=== PATIENT | female | born 1940 | race African-American/Black ===

== ENCOUNTER → 2016-10-18 | Outpatient (CLI) | payer OTHER, MEDICARE ==
[~2016-10-18] MED LIST: MOBIC15 MG PO; NORCO 5-325 TA1 EACH PO; PROCARDIA XL60 MG PO; SYNTHROID88 MCG PO; VALIUM5 MG PO
== END ==
LOC: RAD 11:10
DX: M47.812 Spondylosis without myelopathy or radiculopathy, cervical region (principal); M54.2 Cervicalgia; V49.88XA Car occupant (driver) (passenger) injured in other specified transport accidents, initial encounter; Y93.89 Activity, other specified; Y92.89 Other specified places as the place of occurrence of the external cause; Y99.8 Other external cause status

== ENCOUNTER → 2017-02-06 | Outpatient (CLI) | payer MEDICARE, OTHER | LOC: RAD 10:44 | DX: Z12.31 Encounter for screening mammogram for malignant neoplasm of breast (principal) ==

== ENCOUNTER → 2017-02-08 | Outpatient (CLI) | payer MEDICARE, OTHER | LOC: RAD 01:57 | DX: N63 Unspecified lump in breast (principal) ==

== ENCOUNTER → 2017-11-13 | Outpatient (CLI) | payer MEDICARE ==
[~2017-11-13] MED LIST changes: +ERYTHROMYCIN E3.5 G3 OPHTHALMIC; +NORVASC5 M1 PO
== END ==
LOC: RAD 09:22
DX: M50.322 Other cervical disc degeneration at C5-C6 level (principal)

== ENCOUNTER → 2018-02-12 | Outpatient (CLI) | payer MEDICARE, OTHER ==
[~2018-02-12] MED LIST changes: -ERYTHROMYCIN E3.5 G3 OPHTHALMIC; -NORVASC5 M1 PO
== END ==
LOC: RAD 00:30
DX: Z12.31 Encounter for screening mammogram for malignant neoplasm of breast (principal)

== ENCOUNTER 2018-08-03 15:48 | Emergency (ER) | payer MEDICARE, OTHER ==
[~2018-08-03] VITALS: Ht 160 cm; Wt 61.2 kg
[2018-08-03] MEDS ORDERED: NORVASC5 M1 PO (17:02)
[2018-08-03] MEDS ORDERED: ERYTHROMYCIN E3.5 G3 OPHTHALMIC (18:24)
[2018-08-03 18:40] VITALS: BP 121/78
== END 2018-08-03 18:40 | disposition home or self-care (01) ==
LOC: ER 15:48
DX: S05.02XA Injury of conjunctiva and corneal abrasion without foreign body, left eye, initial encounter (principal); I10 Essential (primary) hypertension; K21.9 Gastro-esophageal reflux disease without esophagitis; E03.9 Hypothyroidism, unspecified; X58.XXXA Exposure to other specified factors, initial encounter; Y93.89 Activity, other specified; Y92.89 Other specified places as the place of occurrence of the external cause; Y99.8 Other external cause status

== ENCOUNTER → 2019-03-26 | Outpatient (CLI) | payer MEDICARE ==
[~2019-03-26] MED LIST changes: +ERYTHROMYCIN E3.5 G3 OPHTHALMIC; +NORVASC5 M1 PO
== END ==
LOC: RAD 00:50
DX: Z12.31 Encounter for screening mammogram for malignant neoplasm of breast (principal)

== ENCOUNTER → 2020-06-09 | Outpatient (CLI) | payer MEDICARE | LOC: RAD 10:28 | PROVIDERS: ATTEND Obstetrics & Gynecology | DX: Z12.31 Encounter for screening mammogram for malignant neoplasm of breast (principal) ==